=== PATIENT | female | born 1995 | race Caucasian/White ===

== ENCOUNTER 2017-04-22 19:54 | Emergency (ER) | payer MEDICAID ==
[2017-04-22 20:17] VITALS: BP 108/70
--- NOTE | 2017-04-22 20:17 | EDM.PDOC ---
ED HPI GENERAL MEDICAL PROBLEM - General Chief Complaint: ENDOSCOPY REGISTERED NURSE Problem Stated Complaint: VAGINAL PAIN Time Seen by Provider: 04/22/17 20:17 Source of Information: Reports: Patient History Limitations: Reports: No Limitations - History of Present Illness INITIAL COMMENTS - FREE TEXT/NARRATIVE: HISTORY AND PHYSICAL: []21-year-old female presenting with vaginal discomfort. She has had a full tight feeling since starting the patch one month ago. History of Present Illness: []Patient did have her period when she took her patch off for 1 week. And since restarting the patch she has not felt well She has been sexually active and has not used a backup method for control while starting this patch. Years ago patient was on the Depo shot and bled constantly while she was on it. With further questioning patient reveals cysts she is concerned about STD. Review of Systems: As per history of present illness and below otherwise all systems reviewed and negative. Past medical history: As per history of present illness and as reviewed below otherwise noncontributory. Surgical history: As per history of present illness and as reviewed below otherwise noncontributory. Social history: No reported history of drug or alcohol abuse. Family history: As per history of present illness and as reviewed below otherwise noncontributory. Physical exam: Alert and oriented female who does not look to be in acute distress she is nontoxic in appearance skin is warm and dry answering questions appropriately in full sentences without any shortness of breath . HEENT: Atraumatic, normocehpalic, pupils reactive, negative for conjunctival pallor or scleral icterus, mucous membranes moist, throat clear, neck supple, nontender, trachea midline. Lungs: Clear to auscultation, breath sounds equal bilaterally, chest non tender. Heart: S1S2, regular, negative for clicks, rubs, or JVD. Abdomen: Soft, nondistended,mild tenderness to pelvis with palpation no rebound no guarding. Negative for masses or hepatossplenmegaly. Negative for costovertebral tenderness. Pelvis: Stable nontender. Genitourinary: Deferred. Rectal: Deferred Extremities: Atraumatic, negative for cords or calf pain. Neurovascular unremarkable. Neuro: Awake, alert, oriented. Cranial nerves II through XII unremarkable. Cerebellum unremarkable. Motor and sensory unremarkable throughout. Exam nonfocal. Because of the concerns over possible STD treat her with Rocephin 250 mg IM and azithromycin 1000 mg by mouth Diagnostics: [UA hCG urine] Therapeutics: []Rocephin 250 IM and azithromycin 1000 mg by mouth Impression: [Risky sexual behavior] Vaginitis Plan: []Discharge to home Use condoms as well as her control Continue to have problems with your control please follow-up with your primary care provider as he may need to change the type of control you're using. Your control does not prevent up getting STD it is recommended that use a secondary device like condoms to help reduce the likelihood of obtaining an STD. MetroGel one plantar full vaginally daily 5 days. Prescription has been written Definitive disposition and diagnosis as appropriate pending reevaluation and review of above. Lower Abdomen Pain Score (Numeric/FACES): 4 - Related Data Allergies Allergy/AdvReac Type Severity Reaction Status Date / Time No Known Allergies Allergy Verified 04/22/17 20:19 Home Meds: Home Meds Norelgestromin/Ethin.Estradiol [Xulane Patch] 1 patch TOP WEEKLY 04/22/17 [ History] ED ROS GENERAL - Review of Systems Review Of Systems: ROS reveals no pertinent complaints other than HPI. ED EXAM, RENAL/ - Physical Exam Exam: See Below (see dictation) Course - Vital Signs Last Recorded V/S: Last Vital Signs Temp 36.4 C 04/22/17 22:37 Pulse 81 04/22/17 22:37 Resp 16 04/22/17 22:37 BP 108/70 04/22/17 22:37 Pulse Ox 98 04/22/17 22:37 - Orders/Labs/Meds Labs: Laboratory Tests 04/22/17 04/22/17 04/22/17 Range/Units 20:45 20:45 21:10 Urine Color YELLOW Urine Appearance CLEAR Urine pH 6.5 (5.0-8.0) Ur Specific [place] 1.020 (1.001-1.035) Urine Protein NEGATIVE (NEGATIVE) mg/dL Urine Glucose (UA) NEGATIVE (NEGATIVE) mg/dL Urine Ketones NEGATIVE (NEGATIVE) mg/dL Urine Occult Blood LARGE H (NEGATIVE) Urine Nitrite NEGATIVE (NEGATIVE) Urine Bilirubin NEGATIVE (NEGATIVE) Urine Urobilinogen 0.2 (<2.0) EU/dL Ur Leukocyte Esterase SMALL (NEGATIVE) Urine RBC 25-30 (0-2/HPF) Urine WBC 1-4 (0-5/HPF) Ur Epithelial Cells MANY (NONE-FEW) Urine Bacteria FEW (NEGATIVE) Urine Mucus MODERATE (NONE-MOD) Urine HCG, Qual NEGATIVE (NEGATIVE) Peg species DNA NEGATIVE (NEGATIVE) Gardnerella DNA Probe POSITIVE H (NEGATIVE) Trichomonas DNA Probe NEGATIVE (NEGATIVE) Meds: Medications Discontinued Medications Generic Name Dose Route Start Last Admin Trade Name Freq PRN Reason Stop Dose Admin Azithromycin 1,000 mg 04/22/17 21:58 04/22/17 22:08 Zithromax 100 Mg/5 Ml Susp PO 04/22/17 21:59 Not Given ONETIME ONE Azithromycin Confirm 04/22/17 22:03 04/22/17 22:08 Zithromax Administered 04/22/17 22:04 1,000 mg Dose Administration 1,000 mg .ROUTE .STK-MED ONE Ceftriaxone Sodium 250 mg 04/22/17 21:58 04/22/17 22:06 Rocephin IM 04/22/17 21:59 250 mg ONETIME ONE Administration Lidocaine HCl Confirm 04/22/17 22:03 04/22/17 22:07 Xylocaine-Mpf 1% Administered 04/22/17 22:04 1 ml Dose Administration 2 mls @ as directed .ROUTE .STK-MED ONE Sodium Chloride 10 ml 04/22/17 20:38 Saline Flush FLUSH ASDIRECTED PRN Keep Vein Open Sodium Chloride 2.5 ml 04/22/17 20:38 Saline Flush FLUSH ASDIRECTED PRN Keep Vein Open Departure - Departure Time of Disposition: 22:15 Disposition: Home, Self-Care 01 Condition: Good Clinical Impression: Bacterial vaginosis - Discharge Information Instructions: Vaginitis, [id number] Referrals: Tila Ureña DO [Primary Care Provider] - Forms: ED Department Discharge Care Plan Goals: follow up with primary care provider use the medication as prescribed
[2017-04-22] MEDS ORDERED: Sodium Chloride 0.9% 2.5 ML Syringe FLUSH PRN (20:38)
[2017-04-22] MEDS ORDERED: Sodium Chloride 0.9% 10 ML Syringe FLUSH PRN (20:38)
[2017-04-22] MEDS ORDERED: Azithromycin 100 MG/5 ML Susp 15 ML Bottle PO ONE (21:58)
[2017-04-22] MEDS ORDERED: cefTRIAXone 250 MG Vial IM ONE (21:58)
[2017-04-22] MEDS ORDERED: Azithromycin 250 MG Tab ONE (22:03)
[2017-04-22] MEDS ORDERED: Lidocaine 1% 2 ML ONE (22:03)
== END 2017-04-22 22:37 | disposition home or self-care (01) ==
LOC: MW.ED 19:54
DX: N76.0 Acute vaginitis (principal)
CPT/HCPCS: 81001; 81025; 87480; 87491; 87510; 87591; 87660; 99283; A9270; J0696

== ENCOUNTER 2017-07-19 17:54 | Emergency (ER) | payer MEDICAID ==
[2017-07-19] MEDS ORDERED: Albuterol/Ipratropium 3.0-0.5 MG/3 ML Neb Soln NEB ONE (18:29)
--- NOTE | 2017-07-19 19:12 | EDM.PDOC ---
ED HPI GENERAL MEDICAL PROBLEM - General Chief Complaint: General Stated Complaint: COUGH/CONGESTION/PAIN RT RIBCAGE Time Seen by Provider: 07/19/17 18:06 Source of Information: Reports: Patient History Limitations: Reports: No Limitations - History of Present Illness INITIAL COMMENTS - FREE TEXT/NARRATIVE: History of present illness: [21-year-old female comes in with complaints of sore throat, sore ears and a cough.] Review of systems: As per history of present illness and below otherwise all systems reviewed and negative. Past medical history: As per history of present illness and as reviewed below otherwise noncontributory. Surgical history: As per history of present illness and as reviewed below otherwise noncontributory. Social history: No reported history of drug or alcohol abuse. Family history: As per history of present illness and as reviewed below otherwise noncontributory. Physical exam: HEENT: Atraumatic, normocephalic, pupils reactive, negative for conjunctival pallor or scleral icterus, mucous membranes moist with oral pharyngeal erythema without white patchy exudate, bilateral TMs pink but with some amount of bulging noted light reflex all intact, neck supple, nontender, trachea midline. Lungs: Clear to auscultation, breath sounds equal bilaterally, chest nontender. Heart: S1S2, regular, negative for clicks, rubs, or JVD. Abdomen: Soft, nondistended, nontender. Negative for masses or hepatosplenomegaly. Negative for costovertebral tenderness. Pelvis: Stable nontender. Genitourinary: Deferred. Rectal: Deferred. Extremities: Atraumatic, negative for cords or calf pain. Neurovascular unremarkable. Neuro: Awake, alert, oriented. Cranial nerves II through XII unremarkable. Cerebellum unremarkable. Motor and sensory unremarkable throughout. Exam nonfocal. Diagnostics: [Rapid strep, influenza AB] Therapeutics: [DuoNeb] Impression: [#1 pharyngitis] Plan: [] Definitive disposition and diagnosis as appropriate pending reevaluation and review of above. - Related Data Allergies Allergy/AdvReac Type Severity Reaction Status Date / Time No Known Allergies Allergy Verified 07/19/17 18:14 Home Meds: Home Meds Albuterol Sulfate [Proair Hfa] 2 puff IH Q6HR #1 hfa.aer.ad 07/19/17 [Rx] Inhaler, Assist Devices [Space Chamber Plus] 1 each ASDIRECTED #1 spacer 09/04 [Rx] methylPREDNISolone [Medrol] 4 mg PO DAILY #21 tab.ds.pk 07/19/17 [Rx] oxyCODONE 10 mg PO Q6HR 07/19/17 [History] Past Medical History - Past Health History Medical/Surgical History: Denies Medical/Surgical History HEENT History: Reports: None Cardiovascular History: Reports: None Respiratory History: Reports: Asthma Gastrointestinal History: Reports: None Genitourinary History: Reports: None PERSONNEL COUNSELOR History: Reports: None Musculoskeletal History: Reports: None Neurological History: Reports: None Psychiatric History: Reports: None Endocrine/Metabolic History: Reports: None Hematologic History: Reports: None Immunologic History: Reports: None Oncologic (Cancer) History: Reports: None Dermatologic History: Reports: None - Past Surgical History Head Surgeries/Procedures: Reports: None HEENT Surgical History: Reports: None Cardiovascular Surgical History: Reports: None Respiratory Surgical History: Reports: None GI Surgical History: Reports: None Female Surgical History: Reports: None Endocrine Surgical History: Reports: None Neurological Surgical History: Reports: None Musculoskeletal Surgical History: Reports: Other (See Below) Other Musculoskeletal Surgeries/Procedures:: 3rd/4th rib removed right side Oncologic Surgical History: Reports: None Dermatological Surgical History: Reports: None Social & Family History - Family History Family Medical History: Noncontributory - Tobacco Use Smoking Status *Q: Former Smoker Used Tobacco, but Quit: Yes Month Tobacco Last Used: 13 Second Hand Smoke Exposure: No - Caffeine Use Caffeine Use: Reports: Coffee, Soda - Recreational Drug Use Recreational Drug Use: No ED ROS GENERAL - Review of Systems Review Of Systems: See Below (History of present illness) ED EXAM, GENERAL - Physical Exam Exam: See Below (See history of present illness) Course - Vital Signs Last Recorded V/S: Last Vital Signs Temp 36.5 C 07/19/17 18:16 Pulse 100 07/19/17 18:16 Resp 18 07/19/17 18:16 BP 104/55 L 07/19/17 18:16 Pulse Ox 97 07/19/17 18:16 - Orders/Labs/Meds Orders: Active Orders 24 hr Category Date Time Status RT Aerosol Therapy [RC] ASDIRECTED Care 07/19/17 18:29 Active CULTURE STREP A CONFIRMATION [RM] Stat Lab 07/19/17 18:47 Results STREP SCRN A RAPID W CULT CONF [RM] Stat Lab 07/19/17 18:47 Received Meds: Medications Discontinued Medications Generic Name Dose Route Start Last Admin Trade Name [place] PRN Reason Stop Dose Admin Albuterol/Ipratropium 3 ml 07/19/17 18:29 07/19/17 18:58 Duoneb 3.0-0.5 Mg/3 Ml NEB 07/19/17 18:30 3 ml ONETIME ONE Administration Departure - Departure Time of Disposition: 19:12 Disposition: Home, Self-Care 01 Condition: Good Clinical Impression: Pharyngitis - Discharge Information Prescriptions: Albuterol Sulfate [Proair Hfa] 2 puff IH Q6HR #1 hfa.aer.ad Inhaler, Assist Devices [Space Chamber Plus] 1 each MC ASDIRECTED #1 spacer methylPREDNISolone [Medrol] 4 mg PO DAILY #21 tab.ds.pk Referrals: Tila Ureña DO [Primary Care Provider] - Forms: ED Department Discharge Additional Instructions: The following information is given to patients seen in the emergency department who are being discharged to home. This information is to outline your options for follow-up care. We provide all patients seen in our emergency department with a follow-up referral. The need for follow-up, as well as the timing and circumstances, are variable depending upon the specifics of your emergency department visit. If you don't have a primary care physician on staff, we will provide you with a referral. We always advise you to contact your personal physician following an emergency department visit to inform them of the circumstance of the visit and for follow-up with them and/or the need for any referrals to a consulting specialist. The emergency department will also refer you to a specialist when appropriate. This referral assures that you have the opportunity for follow-up care with a specialist. All of these measure are taken in an effort to provide you with optimal care, which includes your follow-up. Under all circumstances we always encourage you to contact your private physician who remains a resource for coordinating your care. When calling for follow-up care, please make the office aware that this follow-up is from your recent emergency room visit. If for any reason you are refused follow-up, please contact the [facility] Emergency Department at and asked to speak to the emergency department charge nurse. Take medication as directed Follow-up with primary care in 2-3 days Return to ED as needed as discussed - My Orders Last 24 Hours: My Active Orders 07/19/17 18:29 RT Aerosol Therapy [RC] ASDIRECTED 07/19/17 18:47 CULTURE STREP A CONFIRMATION [RM] Stat STREP SCRN A RAPID W CULT CONF [RM] Stat - Assessment/Plan Last 24 Hours: My Active Orders 07/19/17 18:29 RT Aerosol Therapy [RC] ASDIRECTED 07/19/17 18:47 CULTURE STREP A CONFIRMATION [RM] Stat STREP SCRN A RAPID W CULT CONF [RM] Stat
[2017-07-19 19:26] VITALS: BP 99/62
== END 2017-07-19 19:23 | disposition home or self-care (01) ==
LOC: MW.ED 17:54
DX: J02.9 Acute pharyngitis, unspecified (principal); Z79.899 Other long term (current) drug therapy; Z87.891 Personal history of nicotine dependence
CPT/HCPCS: 87081; 87880; 94640; 99282; 99283-25